=== PATIENT | female | born 1955 | race Caucasian/White ===

== ENCOUNTER 2016-07-12 13:43 | Emergency (ER) | payer OTHER ==
[2016-07-12 15:38] LABS: SPECIFIC GRAVITY 1.015 (1.001-1.030); URINE BILIRUBIN NEGATIVE (NEGATIVE); URINE BLOOD NEGATIVE (NEGATIVE); URINE GLUCOSE (UA) NEGATIVE (NEGATIVE); URINE NITRITE NEGATIVE (NEGATIVE); URINE PROTEIN NEGATIVE (NEGATIVE); URINE UROBILINOGEN NORMAL (0-1 mg/dl)
[2016-07-12 15:41] LABS: URINE APPEARANCE HAZY; URINE COLOR LIGHT YELLOW
[2016-07-12 15:48] LABS: URINE BACTERIA NONE SEEN; URINE EPITHELIAL CELLS 0-2 /hpf; URINE RBC 0-2 /hpf
[2016-07-12 15:49] LABS: URINE LEUKOCYTE ESTERASE 1+ (NEGATIVE)
== END 2016-07-12 16:03 | disposition home or self-care (01) ==
LOC: ED 13:43
DX: R33.9 Retention of urine, unspecified (principal); E11.9 Type 2 diabetes mellitus without complications; I10 Essential (primary) hypertension; F17.210 Nicotine dependence, cigarettes, uncomplicated

== ENCOUNTER 2016-08-03 16:26 | Emergency (ER) | payer OTHER ==
[2016-08-03] MEDS ORDERED: IOPAMIDOL 370 (76%) 100 ML VIAL IV ONE ×2 (16:27)
[2016-08-03 17:31] LABS: ALB/GLOB RATIO 1.1 (>1.0); ALBUMIN 3.4 gm/dL (3.5-5.7); CALCIUM 8.8 mg/dL (8.6-10.3)
[2016-08-03 17:36] LABS: ABSOLUTE NEUTROPHIL COUNT 8.9 K/mm3 (1.8-7.7); BASO # 0.1 K/mm3 (0.0-0.2); BASO % 0.8 % (0.2-1.0); EOS # 0.6 (0.0-0.5); EOS % 3.6 % (0.9-2.9); HEMOGLOBIN 14.3 gm/l (12.0-16.0); IMM NEUT # 0.1 K/mm3 (0-0.2); IMM NEUT% 0.5 % (0-1); LYMPH # 4.6 (1.0-4.8); LYMPH % 30.1 % (15-45); MEAN CELL VOLUME 94.3 fl (81.0-99.0); MEAN CORPUSCULAR HEMOGLOBIN 31.4 pg (27.0-31.0); MEAN CORPUSCULAR HGB CONC 33.3 g/dl (33.0-37.0); MEAN PLATELET VOLUME 9.8 fl (7.4-10.4); MONO # 1.1 (0.0-0.8); PLATELET COUNT 276 K/mm3 (130-400); RED CELL DISTRIBUTION WIDTH 13.6 % (11.5-14.5)
[2016-08-03 17:49] LABS: TROPONIN I < 0.01 ng/ml (0.0-0.06)
[2016-08-03 17:52] LABS: CKMB ISOENZYME 2.3 ng/ml (0.6-6.3)
--- NOTE | 2016-08-03 18:50 | CT ---
ISREAL PRITCHARD ISABELA Exam: CT of the neck with contrast Comparison: None Clinical history: Cough and chest pain. Procedure:Helical CT was performed from the aortic arch through the [place] of [place] during intravenous ministration of 75 cc of Isovue-370. Automated dose reduction technique was used to minimize patient radiation dose. Findings: Visualized intracranial structures are within normal limits. Orbits are intact. Paranasal sinuses are clear. The maxilla is edentulous. There are several remaining teeth associated with the mandible and several dental fillings are identified. There is degenerative disease of the temporomandibular joints. Parotid, submandibular and thyroid glands are normal. There are few scattered reactive lymph nodes within the neck. Aortic arch is atherosclerotic and normal caliber. There is a normal 3 great vessel arrangement. There is a very mild atherosclerosis at the left carotid bifurcation. Internal carotid origins are intact. The left vertebral artery is dominant. Basilar artery is intact. Multilevel degenerative disease of the visualized spine is present and there is been anterior cervical fusion at C5-6 and C6-7. Emphysema is noted within the upper lobes. Trachea is midline. Perivertebral soft tissues are within normal limits. Impression: 1. Minimal atherosclerosis. There is no current evidence for common or internal carotid artery stenosis 2. Dominant left vertebral artery 3. Prior anterior cervical fusion at C5-6 and C6-7 4. Emphysema 5. No suspicious fluid collection or mass. Note:The above report was uploaded to [facility]'s electronic medical records system at 1846 hours.
--- NOTE | 2016-08-03 19:00 | CT ---
Name: ISREAL MAR Exam: CT Angiogram of the chest with contrast Comparison: 10/27/2014 Clinical History: Cough and chest pain Procedure: Helical CT using multidetector technique was applied to the chest during rapid intravenous administration of 75 cc of Isovue-370. MIP reconstructions were obtained on the CT scanner. Automated dose reduction technique was used to minimize patient radiation dose. Findings: CT angiogram of the chest (contrast enhanced): Heart is upper limits of normal in size. There is no pericardial effusion. Aorta is minimally atherosclerotic and there is normal 3 great vessel arrangement. Injection is made via the right. Limited views of thyroid gland are normal. There is no suspicious axillary adenopathy. There are several small lymph nodes within the mediastinum and the largest has a short axis dimension of 1 cm which is similar to the prior. There is a small amount of hilar lymph tissue bilaterally similar to the prior large airways are clear. There is no pulmonary embolus. Emphysema is identified. In the left lung base, there is a 6 mm well-circumscribed noncalcified pulmonary nodule which is unchanged from the prior exam. There is mild, left greater than right, bibasilar infiltrate. There is no pleural effusion. Multilevel degenerative disease of the spine is present. 2.5 cm right adrenal adenoma is stable. There is mild hypertrophy of the left adrenal gland similar to the prior. There is a small hiatal hernia. Other structures below the diaphragm included on this exam are within normal limits. Impression: 1. No pulmonary embolus 2. Mild, left greater than right, bibasilar infiltrate 3. COPD 4. Stable 2.5 cm right adrenal adenoma 5. Small hiatal hernia 6. Senescent changes of the chest 7. Stable 6 mm noncalcified left pulmonary nodule. Continued yearly follow-up is recommended given the patient's COPD Note:The above report was uploaded to [facility]'s electronic medical records system at 1855 hours.
== END 2016-08-03 20:23 | disposition home or self-care (01) ==
LOC: ED 16:26
DX: J18.9 Pneumonia, unspecified organism (principal); J44.9 Chronic obstructive pulmonary disease, unspecified; M32.9 Systemic lupus erythematosus, unspecified; I10 Essential (primary) hypertension; F17.210 Nicotine dependence, cigarettes, uncomplicated
CPT/HCPCS: 83690; 85025; 82553; 80053; 84484; 71275; 70491; 99284 ×2; 93005; Q9967 ×2

== ENCOUNTER 2016-08-29 11:08 | Emergency (ER) | payer OTHER ==
[2016-08-29] MEDS ORDERED: FAMOTIDINE 10 MG/ML 2ML VIAL ONE (11:20)
[2016-08-29] MEDS ORDERED: EPINEPHRINE 1 MG/ML 1ML AMP ONE (11:20)
== END 2016-08-29 14:23 | disposition home or self-care (01) ==
LOC: ED 11:08
DX: T63.441A Toxic effect of venom of bees, accidental (unintentional), initial encounter (principal); T78.2XXA Anaphylactic shock, unspecified, initial encounter; J44.9 Chronic obstructive pulmonary disease, unspecified; F17.210 Nicotine dependence, cigarettes, uncomplicated; W57.XXXA Bitten or stung by nonvenomous insect and other nonvenomous arthropods, initial encounter